=== PATIENT | female | born 1960 | race Caucasian/White ===

== ENCOUNTER 2020-04-15 17:01 | Observation (INO) ==
[2020-04-15] MEDS ORDERED: SODIUM CHLORIDE 0.9% 1,000 ML IV STA ×2 (17:36→18:12)
[2020-04-15 18:02] LABS: Basophils % 0.2 % (0.0-0.8); Hematocrit 37.7 VOL% (35.7-47.0); Hemoglobin 12.4 GM/DL (12.0-16.0); Immature Granulocytes % 0.5 %; Immature Granulocytes Absolute 0.06 #; Lymphocytes # 0.5 10*3/uL (1.4-4.0); Lymphocytes % 4.9 % (21.3-54.2); Mean Corpuscular HGB Conc 32.9 GM/DL (32-36); Mean Corpuscular Volume 87.7 FL (87-102); Mean Platelet Volume 9.9 FL (9.6-12.0); Monocytes % 3.7 % (1.7-12.7); Neutrophils % 90.7 % (38.7-73.9); Platelet Count 386 T/CUMM (130-400); Red Cell Distribution Width 13.9 % (9.3-17.3); White Blood Count 11.1 T/CUMM (4-12)
[2020-04-15 18:03] LABS: ABG Base Excess -6.6 MMOL/L (-2.5-2.5); ABG Oxygen Saturation 96.5 % (95-100); ABG PCO2 28.5 MM HG (35-48); ABG PH 7.389 (7.35-7.45); ABG PO2 81.4 MM HG (80-95); ABG TCO2 15.4 MMOL/L (23-27)
[2020-04-15 18:25] LABS: Albumin 3.2 G/DL (3.4-5.0); Bilirubin,Total 0.6 MG/DL (0.2-1.0); Calcium 9.6 MG/DL (8.5-10.1); Osmolality,Calculated 289.8 MOS/KG (273-304); Potassium 4.7 MMOL/L (3.5-5.1)
[2020-04-15] MEDS ORDERED: INSULIN REGULAR 100 UNIT/ML IV STA (18:51)
[2020-04-15 18:54] LABS: Bilirubin,Urine Negative (Negative); Blood, Urine Moderate mg/dL (Negative); Glucose,Urine (UA) >=500 mg/dL (Negative); Hyaline Casts,Urine 110 /LPF (0-3); Ketones,Urine 20 mg/dL (Negative); Mucus,Urine Occasional /LPF (Occasional); Nitrite,Urine Negative (Negative); Protein,Urine >=500 MG/DL; RBC,Urine 25 /HPF (0-4); Squamous Epithelial Cell,Urine Occasional /HPF (0-10); Urine Appearance Slightly Hazy (Clear); Urine Color Yellow (Yellow); Urine Specific Gravity 1.015 (1.001-1.035); Urine Urobilinogen < 2.0 EU/DL (0.2-1.0); WBC,Urine 2 /HPF (0-6)
[2020-04-15] MEDS ORDERED: ONDANSETRON 4 MG/2 ML VIAL IV STA (20:45)
[2020-04-15] MEDS ORDERED: DEXTROSE 50% 25 GM/50 ML VIAL IV PRN (20:46)
[2020-04-15] MEDS ORDERED: GLUCAGON 1 MG VIAL IM PRN (20:46)
[2020-04-15] MEDS ORDERED: ACETAMINOPHEN 325 MG TABLET PO PRN (20:57)
[2020-04-15] MEDS ORDERED: ONDANSETRON 4 MG/2 ML VIAL IV PRN (20:57)
[2020-04-15] MEDS ORDERED: hydrALAZINE 20 MG/1 ML VIAL IV PRN (20:57)
[2020-04-15] MEDS ORDERED: MAGNESIUM SULF RIDER 2 GM in PREMIX 1 EACH IV PRN (21:06)
[2020-04-15] MEDS ORDERED: SODIUM BICARB INJ 100 MEQ in STERILE WATER INJ 400 ML IV PRN (21:06)
[2020-04-15] MEDS ORDERED: SODIUM PHOSPHATE INJ 13.3 MMOL in SODIUM CHLORIDE 0.9% 250 ML IV PRN (21:06)
[2020-04-15] MEDS ORDERED: MAGNESIUM SULF RIDER 4 GM in PREMIX 1 EACH IV PRN (21:06)
[2020-04-15] MEDS ORDERED: POTASSIUM CHLORIDE RIDER 10 MEQ in PREMIX 1 EACH IV PRN (21:06)
[2020-04-15 21:09] LABS: Lymphocytes 6 % (20-55); Segmented Neutrophils 94 % (50-85); Total Cells Counted 100
[2020-04-15 21:10] LABS: Platelet Estimate Increased
[2020-04-15] MEDS ORDERED: Insulin Glargine [Basaglar Kwikpen U-100 Insulin] 100 unit/mL SUBCUT SCH (21:15)
[2020-04-15 23:01] LABS: Calcium 8.8 MG/DL (8.5-10.1); Potassium 4.1 MMOL/L (3.5-5.1)
[2020-04-15] MEDS: INSULIN REGULAR 100 UNIT/ML SUBCUT SCH (23:25)
[2020-04-16] MEDS: SODIUM CHLORIDE 0.9% 1,000 ML IV SCH ×3 (01:30→08:16)
[2020-04-16] MEDS: PROMETHAZINE INJ 25 MG in SODIUM CHLORIDE 0.9% 50 ML IV PRN (01:30)
[2020-04-16] MEDS: INSULIN REGULAR 100 UNIT/ML SUBCUT SCH ×5 (02:23→17:57)
[2020-04-16] MEDS: INSULIN GLARGINE 100 UNIT/ML SUBCUT SCH ×3 (02:23→20:53)
[2020-04-16 02:28] LABS: Basophils % 0.1 % (0.0-0.8); Hemoglobin 11.8 GM/DL (12.0-16.0); Immature Granulocytes % 0.5 %; Immature Granulocytes Absolute 0.07 #; Lymphocytes # 1.1 10*3/uL (1.4-4.0); Lymphocytes % 7.9 % (21.3-54.2); Mean Corpuscular HGB Conc 33.7 GM/DL (32-36); Mean Corpuscular Volume 84.1 FL (87-102); Mean Platelet Volume 9.8 FL (9.6-12.0); Monocytes % 5.9 % (1.7-12.7); Neutrophils % 85.6 % (38.7-73.9); Platelet Count 383 T/CUMM (130-400); Red Blood Count 4.16 MC/CUMM (3.8-5.5); Red Cell Distribution Width 13.7 % (9.3-17.3); White Blood Count 13.7 T/CUMM (4-12)
[2020-04-16 02:55] LABS: Calcium 9.2 MG/DL (8.5-10.1); Osmolality,Calculated 291.7 MOS/KG (273-304); Potassium 3.4 MMOL/L (3.5-5.1)
[2020-04-16] MEDS: SODIUM CHLORIDE 0.45% 1,000 ML IV SCH ×3 (06:04→22:19)
[2020-04-16 06:47] LABS: Calcium 8.8 MG/DL (8.5-10.1); Potassium 3.3 MMOL/L (3.5-5.1)
[2020-04-16] MEDS: POTASSIUM CHLORIDE 20 MEQ TABLET PO PRN ×2 (10:00→13:25)
[2020-04-16] MEDS: ATORVASTATIN 80 MG TABLET PO SCH (10:00)
[2020-04-16] MEDS: ASPIRIN EC 81 MG TABLET PO SCH (10:02)
[2020-04-16] MEDS: atenoloL 25 MG TABLET PO SCH (10:02)
[2020-04-16] MEDS: CLOPIDOGREL 75 MG TABLET PO SCH (10:02)
[2020-04-16 10:52] LABS: Calcium 8.8 MG/DL (8.5-10.1); Osmolality,Calculated 280.7 MOS/KG (273-304); Potassium 3.5 MMOL/L (3.5-5.1)
[2020-04-16 13:34] LABS: Calcium 8.5 MG/DL (8.5-10.1); Osmolality,Calculated 281.7 MOS/KG (273-304); Potassium 3.6 MMOL/L (3.5-5.1)
[2020-04-16 18:18] LABS: Calcium 8.4 MG/DL (8.5-10.1); Potassium 3.8 MMOL/L (3.5-5.1)
[2020-04-17] MEDS: INSULIN REGULAR 100 UNIT/ML SUBCUT SCH ×5 (01:12→16:45)
[2020-04-17] MEDS: PROMETHAZINE INJ 25 MG in SODIUM CHLORIDE 0.9% 50 ML IV PRN (01:36)
[2020-04-17] MEDS: SODIUM CHLORIDE 0.45% 1,000 ML IV SCH ×2 (06:36→14:20)
[2020-04-17 07:50] LABS: Basophils % 0.2 % (0.0-0.8); Eosinophils % 0.1 % (0.00-10.9); Hematocrit 34.6 VOL% (35.7-47.0); Hemoglobin 11.9 GM/DL (12.0-16.0); Immature Granulocytes % 0.4 %; Immature Granulocytes Absolute 0.05 #; Lymphocytes # 1.3 10*3/uL (1.4-4.0); Lymphocytes % 10.1 % (21.3-54.2); Mean Corpuscular HGB Conc 34.4 GM/DL (32-36); Mean Corpuscular Volume 83.6 FL (87-102); Mean Platelet Volume 9.6 FL (9.6-12.0); Monocytes % 7.4 % (1.7-12.7); Neutrophils % 81.8 % (38.7-73.9); Platelet Count 327 T/CUMM (130-400); Red Blood Count 4.14 MC/CUMM (3.8-5.5); Red Cell Distribution Width 13.7 % (9.3-17.3)
[2020-04-17] MEDS: ASPIRIN EC 81 MG TABLET PO SCH (09:02)
[2020-04-17] MEDS: ATORVASTATIN 80 MG TABLET PO SCH (09:03)
[2020-04-17] MEDS: CLOPIDOGREL 75 MG TABLET PO SCH (09:03)
[2020-04-17] MEDS: INSULIN GLARGINE 100 UNIT/ML SUBCUT SCH (09:03)
[2020-04-17] MEDS: atenoloL 25 MG TABLET PO SCH (09:03)
[2020-04-17 18:11] VITALS: BP 140/85
== END 2020-04-17 18:55 | disposition home or self-care (01) ==
LOC: N.EDINP 17:01 → N.ED 17:01 → N.EDINP 22:09 → N.4E 22:13
PROVIDERS: ADMIT Internal Medicine Geriatric Medicine; ATTEND Internal Medicine Geriatric Medicine